=== PATIENT | male | born 1955 | race Caucasian/White ===

== ENCOUNTER 2016-11-22 09:41 | Emergency (ER) | payer BC ==
[2016-11-22 09:48] VITALS: BP 131/98; PULSE 90; TEMP 97.9; BMI 36.8
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
[2016-11-22] MEDS ORDERED: methylPREDNISolone NA SUCC 125 MG/2 ML VIAL IVPB ONE (10:06)
[2016-11-22] MEDS ORDERED: FAMOTIDINE 20 MG/50 ML IVPB 50 ML IVPB ONE ×2 (10:07→10:12)
[2016-11-22] MEDS ORDERED: methylPREDNISolone NA SUCC 125 MG/2 ML VIAL ONE (10:12)
== END 2016-11-22 11:49 | disposition home or self-care (01) ==
LOC: JER 09:41
PROC: 3E033GC Introduction of Other Therapeutic Substance into Peripheral Vein, Percutaneous Approach (ICD-10-PCS; principal; 2016-11-22)
PROC: 3E0333Z Introduction of Anti-inflammatory into Peripheral Vein, Percutaneous Approach (ICD-10-PCS; 2016-11-22)
PROC: 3E033GC Introduction of Other Therapeutic Substance into Peripheral Vein, Percutaneous Approach (ICD-10-PCS; 2016-11-22)
DX: R21 Rash and other nonspecific skin eruption (principal); I10 Essential (primary) hypertension; F31.9 Bipolar disorder, unspecified
CPT/HCPCS: 99281-25

== ENCOUNTER 2018-11-06 00:45 | Inpatient (IN) | payer BC ==
[2018-11-06] MEDS ORDERED: ONDANSETRON 4 MG/2 ML VIAL IVPUSH ONE (01:38)
[2018-11-06] MEDS ORDERED: SODIUM CHLORIDE 0.9% 500 ML INFUS.BAG IV ONE (01:38)
[2018-11-06] MEDS ORDERED: FAMOTIDINE 20 MG/50 ML IVPB 20 MG/50 ML MG IVPB ONE ×2 (01:38→01:50)
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
[2018-11-06] MEDS ORDERED: ONDANSETRON 4 MG/2 ML VIAL ONE (01:50)
[2018-11-06 01:58] LABS: BASO % 0.6 % (0-2.0); EOS % 0.9 % (0-4.5); HEMATOCRIT 46.4 % (35.4-49); HEMOGLOBIN 15.6 GM/dL (11.7-16.9); LYMPH % 15.5 % (8-40); MCHC 33.7 g/dl (32.0-35.9); MEAN CELL VOLUME 92.2 fl (80-96); MEAN PLT VOLUME 8.7 fl (7.5-11.1); MONO % 8.5 % (3.8-10.2); NEUT % 74.5 % (42.8-82.8); PLATELET COUNT 221 K/MM3 (134-434); RBC 5.04 M/mm3 (4.00-5.60); RDW 12.9 % (11.9-15.9); WHITE BLOOD COUNT 10.9 K/mm3 (4.0-10.0)
[2018-11-06 02:25] LABS: ALBUMIN 3.9 g/dl (3.4-5.0); ALK PHOS 72 U/L (45-117); ANION GAP 6 MMOL/L (8-16); BLOOD UREA NITROGEN 9 mg/dL (7-18); CALCIUM 9.1 mg/dL (8.5-10.1); CHLORIDE 104 mmol/L (98-107); CO2 27 mmol/L (21-32); CREATININE 0.9 mg/dL (0.55-1.3); GLUCOSE,RANDOM 111 mg/dL (74-106); MAGNESIUM 2.5 mg/dL (1.8-2.4); PHOSPHOROUS 3.4 mg/dL (2.5-4.9); POTASSIUM 4.1 mmol/L (3.5-5.1); SGOT/AST 17 U/L (15-37); SGPT/ALT 27 U/L (13-61); SODIUM 138 mmol/L (136-145); TOT PROT 6.9 g/dl (6.4-8.2)
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
[2018-11-06] MEDS ORDERED: LIDOCAINE VISCOUS 2% ORAL/TOP 20 ML UNIT-DOSE CUP MM ONE ×2 (03:34→05:49)
[2018-11-06] MEDS ORDERED: LIDOCAINE VISCOUS 2% ORAL/TOP 20 ML UNIT-DOSE CUP ONE ×2 (03:44→05:56)
[2018-11-06 04:42] LABS: LIPASE 108 U/L (73-393)
[2018-11-06] MEDS ORDERED: ONDANSETRON 4 MG/2 ML VIAL IVPUSH PRN (05:30)
[2018-11-06] MEDS ORDERED: MORPHINE SULFATE 2 MG/ML VIAL IVPUSH PRN (05:30)
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
[2018-11-06] MEDS: LACTATED RINGERS SOLUTION 1,000 ML IV SCH ×2 (06:00→16:13)
[2018-11-06] MEDS ORDERED: PANTOPRAZOLE 40 MG TABLET (FP) PO SCH (10:00)
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
--- NOTE | 2018-11-06 11:02 | EKG ---
Test Reason : Blood Pressure : / mmHG Vent. Rate : 072 BPM Atrial Rate : 072 BPM P-R Int : 164 ms QRS Dur : 088 ms QT Int : 414 ms P-R-T Axes : 034 -21 063 degrees QTc Int : 453 ms NORMAL SINUS RHYTHM NONSPECIFIC T WAVE ABNORMALITY ABNORMAL ECG NO PREVIOUS ECGS AVAILABLE Confirmed by MIGUEL ALVAREZ, ADARSH ([id number]) on 11/06/2018 11:01:54 AM Referred By: Confirmed By:ADARSH RIVERA MD
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
[2018-11-06 13:06] VITALS: BMI 35.2
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
[2018-11-07] MEDS: LACTATED RINGERS SOLUTION 1,000 ML IV SCH ×2 (04:56→15:53)
[2018-11-07 08:32] LABS: CALCIUM 8.7 mg/dL (8.5-10.1); CREATININE 0.8 mg/dL (0.55-1.3); MAGNESIUM 2.3 mg/dL (1.8-2.4); POTASSIUM 3.9 mmol/L (3.5-5.1)
[2018-11-07] MEDS: PANTOPRAZOLE SODIUM 40 MG VIAL IVPUSH SCH (10:27)
[2018-11-07] MEDS ORDERED: ONDANSETRON 4 MG/2 ML VIAL IVPB SCH (11:15)
--- NOTE | 2018-11-07 13:30 | EKG ---
Test Reason : Blood Pressure : / mmHG Vent. Rate : 062 BPM Atrial Rate : 062 BPM P-R Int : 176 ms QRS Dur : 092 ms QT Int : 476 ms P-R-T Axes : 014 -31 044 degrees QTc Int : 483 ms NORMAL SINUS RHYTHM LEFT AXIS DEVIATION NONSPECIFIC T WAVE ABNORMALITY ABNORMAL ECG WHEN COMPARED WITH ECG OF 06-NOV-2018 01:49, NO SIGNIFICANT CHANGE WAS FOUND Confirmed by MD SHREYAS, KONRAD ([id number]) on 11/07/2018 1:30:13 PM Referred By: Noah MCGUIRE Confirmed By:KONRAD PRITCHETT MD
[2018-11-07] MEDS ORDERED: TRIMETHOBENZAMIDE HCL 200MG/2ML INJ IM PRN (13:49)
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
[2018-11-07] MEDS: HEPARIN NA (PORCINE) 5,000 UNITS/ML 1ML VIAL SQ SCH ×2 (15:00→22:18)
[2018-11-07] MEDS ORDERED: PT OWN MED DRAWER 7, Y5N ONE (17:15)
[2018-11-07] MEDS: LITHIUM CARBONATE 300 MG CAPSULE (FP) PO SCH ×2 (17:29→21:20)
[2018-11-07] MEDS ORDERED: ZOLPIDEM TARTRATE 5 MG TABLET PO PRN (22:00)
[2018-11-08] MEDS: LACTATED RINGERS SOLUTION 1,000 ML IV SCH ×3 (03:19→13:35)
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
[2018-11-08] MEDS: HEPARIN NA (PORCINE) 5,000 UNITS/ML 1ML VIAL SQ SCH ×2 (05:21→13:40)
[2018-11-08] MEDS: LITHIUM CARBONATE 300 MG CAPSULE (FP) PO SCH ×2 (05:21→13:36)
[2018-11-08 07:23] LABS: BASO % 0.5 % (0-2.0); HEMATOCRIT 42.1 % (35.4-49); HEMOGLOBIN 14.4 GM/dL (11.7-16.9); LYMPH % 23.6 % (8-40); MCH 31.6 pg (25.7-33.7); MCHC 34.2 g/dl (32.0-35.9); MEAN CELL VOLUME 92.3 fl (80-96); MEAN PLT VOLUME 8.9 fl (7.5-11.1); NEUT % 59.9 % (42.8-82.8); PLATELET COUNT 184 K/MM3 (134-434); RBC 4.56 M/mm3 (4.00-5.60); RDW 12.9 % (11.9-15.9); WHITE BLOOD COUNT 6.6 K/mm3 (4.0-10.0)
[2018-11-08 07:44] LABS: CALCIUM 8.3 mg/dL (8.5-10.1); CREATININE 0.9 mg/dL (0.55-1.3); MAGNESIUM 2.1 mg/dL (1.8-2.4); PHOSPHOROUS 2.9 mg/dL (2.5-4.9)
[2018-11-08] MEDS: PANTOPRAZOLE SODIUM 40 MG VIAL IVPUSH SCH (10:11)
[2018-11-08] MEDS ORDERED: PT OWN MED DRAWER 7, Y5N ONE (13:25)
--- NOTE | 2018-11-08 16:27 | DS ---
Physical Exam: SUBJECTIVE: Patient seen and examined. Pt. states he is passing gas but no stool. Pt. tolerated clears, denies nausea vomiting or abdominal pain. Pt. endorses abdominal soreness on palpation. OBJECTIVE: Vital Signs Period Temp Pulse Resp BP Sys/Cordon Pulse Ox Last 24 Hr 97.4 F-98.3 F 50-71 18-18 101-127/72-78 PHYSICAL EXAM GENERAL: The patient is awake, alert, and fully oriented, in no acute distress. HEAD: Normal with no signs of trauma. EYES: Extraocular movements intact, sclera anicteric, conjunctiva clear. ENT: Ears normal, nares patent, oropharynx clear without exudates, moist mucous membranes. NECK: Trachea midline, full range of motion, supple. LUNGS: CTAB, no accessory muscle use. HEART: Regular rate and rhythm, S1, S2 without murmur ABDOMEN: Soft, nontender, nondistended, normoactive bowel sounds, no guarding, no rebound EXTREMITIES: 2+ dorsal pulses, warm, no calf tenderness, well-perfused, no edema. NEUROLOGICAL: Normal speech, gait not observed. PSYCH: Normal mood and affect. SKIN: Warm, dry, normal turgor LABS Laboratory Results - last 24 hr 11/07/18 11/08/18 11/08/18 10:20 05:30 05:30 WBC 6.6 RBC 4.56 Hgb 14.4 Hct 42.1 MCV 92.3 MCH 31.6 MCHC 34.2 RDW 12.9 Plt Count 184 MPV 8.9 Absolute Neuts (auto) 3.9 Neutrophils % 59.9 Lymphocytes % 23.6 D Monocytes % 11.0 H Eosinophils % 5.0 H D Basophils % 0.5 Nucleated RBC % 0 Sodium 140 Potassium 4.0 Chloride 105 Carbon Dioxide 31 Anion Gap 4 L BUN 7 Creatinine 0.9 Est GFR (CKD-EPI)AfAm 105.72 Est GFR (CKD-EPI)NonAf 91.22 Random Glucose 86 Calcium 8.3 L Phosphorus 2.9 Magnesium 2.1 [place] 0 L HOSPITAL COURSE: Date of Admission:11/06/18 Date of Discharge: 11/08/18 Discharge Summary Reason For Visit: SMALL BOWEL OBSTRUCTION Current Active Problems Abdominal pain in male (Acute) History of exploratory laparotomy (Acute) SBO (small bowel obstruction) (Acute) Vomiting in adult patient (Acute) Condition: Improved - Instructions Diet, Activity, Other Instructions: You came in for abdominal pain, nausea and vomiting. We treated you by NGT decompression and bowel rest. Please resume your home medications as prescribed. Please follow up with your PCP, within 1 week. If you do not have one we have provided Dr. Ratliff. Please follow up with your Aeronautical Project Engineer, Dr. Presley Su, within 1 week for a colonoscopy. Please return to the ED if you are having worsening abdominal pain, nausea, vomiting or any concerning symptoms. Referrals: Hardeep Ratliff MD [Staff Physician] - ON STAFF,NOT [Primary Care Provider] - 1 Week Disposition: HOME - Home Medications Comprehensive Discharge Medication List: Ambulatory Orders [place] Carbonate [Lithobid] 900 mg PO DAILY 11/22/16 Amlodipine Besylate 10 mg PO DAILY 11/06/18 Zolpidem Tartrate [Ambien] 10 mg PO PRN PRN 11/06/18 - Discharge Referral Referred to [facility] Med P.C.: No
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
[2018-11-08 18:39] VITALS: BP 138/76; PULSE 78; TEMP 98.4
== END 2018-11-08 19:17 | disposition home or self-care (01) | DRG 390 ==
LOC: JER 00:45 → JERBED 04:24 → J5S 06:57
PROVIDERS: ADMIT Internal Medicine
PROC: 0D9670Z Drainage of Stomach with Drainage Device, Via Natural or Artificial Opening (ICD-10-PCS; principal; 2018-11-06)
DX: K56.609 Unspecified intestinal obstruction, unspecified as to partial versus complete obstruction (principal); I10 Essential (primary) hypertension; F31.9 Bipolar disorder, unspecified; R11.10 Vomiting, unspecified; R10.9 Unspecified abdominal pain; D72.829 Elevated white blood cell count, unspecified
CPT/HCPCS: 36415; 71045-TC-FY; 74018-TC-FY; 74177-TC; 80048; 80053; 80178; 82550; 83690; 83735; 84100; 84484; 85025; 93005; 93010; 99284-25; J1644